=== PATIENT | male | born 1950 | race African-American/Black ===

== ENCOUNTER 2019-03-03 01:11 | Inpatient (IN) | payer MEDICARE, OTHER ==
[~2019-03-03] VITALS: Ht 180.3 cm; Wt 50.0 kg
[2019-03-03] VITALS (7 sets, daily range): BP systolic 91–126; BP diastolic 56–66
[2019-03-03] MEDS ORDERED: HYDROmorphone HCL 2 MG/ML VL IV ONE ×2 (03:30→08:15)
[2019-03-03 07:00] LABS: Basophils # (auto) 0 uL; Eosinophils # (auto) 0 uL; Hemoglobin 13.9 g/dL (13.5-17.5); Monocytes # (auto) 0.6 uL; Nucleated Red Blood Cells % 0.1 %
[2019-03-03 07:02] LABS: Basophils % (auto) 0.3 % (0.0-2.0); Hematocrit 39.2 % (41.0-53.0); Lymphocytes # (auto) 0.8 uL; Lymphocytes % (auto) 10.3 % (10.0-50.0); Mean Corpuscular Hemoglobin 37.4 pg (28.0-32.0); Mean Corpuscular Hgb Conc. 35.5 g/dL (32.0-36.0); Mean Corpuscular Volume 105.2 fL (80.0-100.0); Monocytes % (auto) 7.3 % (0.0-12.0); Neutrophils # (auto) 6.6 uL; Neutrophils % (auto) 82.1 % (37.0-80.0); Platelet Count (auto) 168 10^3/uL (140-450); Red Blood Cells 3.72 10^6/uL (4.5-5.90); Red Cell Distribution Width 13.8 % (11.8-14.3); White Blood Cell 8.1 10^3/uL (4.4-10.8)
[2019-03-03 07:14] LABS: Albumin 3.5 g/dL (3.4-5.0); Calcium 10.1 mg/dL (8.5-10.1); Potassium 4.2 mmol/L (3.5-5.1)
[2019-03-03 07:23] LABS: Bilirubin, Total 1.5 mg/dL (0.2-1.0); Total Protein 7.2 g/dL (6.4-8.2)
[2019-03-03 07:35] LABS: INR 0.95 (0.9-1.15)
[2019-03-03] MEDS ORDERED: PROMETHAZINE HCL 25 MG/ML 1ML IV ONE (08:15)
[2019-03-03] MEDS ORDERED: ONDANSETRON HCL 4 MG/2 ML VIAL IV PRN (08:30)
[2019-03-03] MEDS ORDERED: ACETAMINOPHEN 500 MG TAB PO PRN (08:30)
[2019-03-03] MEDS ORDERED: DOCUSATE SOD 100 MG CAP PO PRN (08:30)
--- NOTE | 2019-03-03 10:10 | NUR ---
Telemetry admit from [facility] admitted to Telemetry unit after SBAR received. Patient oriented to Miriam Alan, primary RN, unit, room, bed, and unit policies regarding patient care and visiting hours. Patient now on continuous telemetry monitoring, tele box # 23 and telemetry reading on arrival to unit is sinus rhythm at 91bpm. Patient placed on bedside oxygen, weighed by bedscale and encouraged to call if they need something. All questions and concerns addressed, patient verbalized understanding. Note: pt is awake and alert, no signs of distress or complaints of pain at this time, will continue to monitor.
[2019-03-03] MEDS ORDERED: CHOL20007 OR (11:29)
[2019-03-03] MEDS ORDERED: ALBU108A5 IN (11:29)
[2019-03-03] MEDS ORDERED: TERA2CAP45 PO (11:29)
[2019-03-03] MEDS ORDERED: LISI-646 PO (11:29)
[2019-03-03] MEDS ORDERED: BUPR75TA9 PO (11:29)
[2019-03-03] MEDS: IPRATROPIUM BROM 0.5 MG/2.5ML INH SOL NEB SCH ×2 (11:40→19:11)
[2019-03-03] MEDS: ALBUTEROL SULF 2.5 MG/0.5ML(0.5%) NEB SOLN NEB SCH ×2 (11:41→19:11)
--- NOTE | 2019-03-03 13:50 | NUR ---
Dr. Duke at bedside. MD spoke with the patient and daughter.
--- NOTE | 2019-03-03 13:50 | NUR ---
Dr. Duke ordered Cuellar catheter insertion.
[2019-03-03] MEDS: MORPHINE SULF INJ 2 MG/ML SYRINGE 1ML IV PRN ×2 (13:56→17:48)
--- NOTE | 2019-03-03 13:56 | NUR ---
Patient pointed on his left lower side of the body, stated the pain level at 9/10 at thia time. Morphine Sulf Inj given for severe pain as ordered.
--- NOTE | 2019-03-03 15:00 | NUR ---
optifoam applied to sacral area as preventive measure.
--- NOTE | 2019-03-03 15:20 | NUR ---
Wong catheter insertion Dr. Duke ordered to insert wong catheter. Patient educated on catheter and reason for insertion. All questions answered. Wong catheter guage Romansh inserted with clean sterile technique. Patient tolerated well.
--- NOTE | 2019-03-03 15:30 | NUR ---
urine sample sent to lab for urinalysis
[2019-03-03 15:52] LABS: Urine Bacteria NONE SEEN /hpf (None Seen); Urine Blood Negative /uL (Negative); Urine Hyaline Cast FEW /lpf (0 - 2); Urine Specific Gravity 1.024 (1.001-1.035); Urine WBC 10 /hpf (0 - 3)
[2019-03-03] MEDS: SODIUM CHLORIDE 0.9% 1,000 ML IV SCH (15:53)
--- NOTE | 2019-03-03 15:56 | NUR ---
called echocardiogram tech, no answer, left a message pt has order for echocardiogram for pre-op.
[2019-03-03 16:08] LABS: Alcohol, Urine < 3.0 mg/dL (0-5); Amphetamine Screen, Urine NEGATIVE (NEGATIVE); Barbiturate Scree,Urine NEGATIVE (NEGATIVE); Benzodiazephine Screen, Urine NEGATIVE (NEGATIVE); Cannabinoid Screen, Urine NEGATIVE (NEGATIVE); Cocaine Screen, Urine NEGATIVE (NEGATIVE); Opiate Scree,Urine POSITIVE (NEGATIVE); Phencyclidine Screen, Urine NEGATIVE (NEGATIVE)
--- NOTE | 2019-03-03 18:35 | NUR ---
seen by Dr. Ugarte Pt and family made aware of the plan for surgery on Monday.
[2019-03-03] MEDS: buPROPion HCL 75 MG TAB PO SCH (18:46)
--- NOTE | 2019-03-03 19:28 | NUR ---
mrsa swab sent to lab
--- NOTE | 2019-03-03 23:53 | NUR ---
LOVE AND IV RESTARTED FOUND PATIENT REMOVING IV AND PULLING AT LOVE. TELE BOX HAD ALSO BEEN REMOVED. WHEN ASKED, PATIENT STATED THAT HE HAD HAD A "BAD DREAM". PATIENT WAS QUICKLY REORIENTED. A 20 GAUGE IV WAS RESTARTED IN RIGHT HAND. LOVE WAS TAKEN OUT AND A NEW ONE STARTED. LOVE IS DRAINING WITH DARK MINDY AND BLOOD TINGED URINE. PATIENT EDUCATED ON NECESSITY OF EQUIPMENT AND PATIENT VERBALIZED UNDERSTANDING. WILL CONTINUE TO MONITOR.
[2019-03-04] MEDS: IPRATROPIUM BROM 0.5 MG/2.5ML INH SOL NEB SCH ×4 (00:08→18:17)
[2019-03-04] MEDS: ALBUTEROL SULF 2.5 MG/0.5ML(0.5%) NEB SOLN NEB SCH ×4 (00:08→18:16)
[2019-03-04] MEDS: SODIUM CHLORIDE 0.9% 1,000 ML IV SCH ×2 (03:50→17:15)
--- NOTE | 2019-03-04 04:38 | NUR ---
PATIENT STATING PAIN FROM LOVE LOVE INSPECTED AND STILL DRAINING PROPERLY. EDUCATED PATIENT ON NECESSITY OF LOVE AND NOT TO PULL AT IT. PATIENT STATED UNDERSTANDING. WILL CONTINUE TO MONITOR.
[2019-03-04 05:41] VITALS: BP 104/57
[2019-03-04 06:48] LABS: Basophils # (auto) 0 uL; Eosinophils # (auto) 0 uL; Lymphocytes # (auto) 0.6 uL; Mean Corpuscular Hgb Conc. 34.4 g/dL (32.0-36.0); Monocytes # (auto) 0.6 uL; Neutrophils # (auto) 7.9 uL; Red Cell Distribution Width 13.8 % (11.8-14.3)
[2019-03-04] MEDS: buPROPion HCL 75 MG TAB PO SCH ×2 (06:49→18:48)
[2019-03-04 06:52] LABS: Basophils % (auto) 0.3 % (0.0-2.0); Hematocrit 36.9 % (41.0-53.0); Hemoglobin 12.7 g/dL (13.5-17.5); Lymphocytes % (auto) 6.9 % (10.0-50.0); Mean Corpuscular Hemoglobin 36.3 pg (28.0-32.0); Mean Corpuscular Volume 105.7 fL (80.0-100.0); Monocytes % (auto) 6.6 % (0.0-12.0); Neutrophils % (auto) 86.2 % (37.0-80.0); Platelet Count (auto) 135 10^3/uL (140-450); Red Blood Cells 3.49 10^6/uL (4.5-5.90); White Blood Cell 9.1 10^3/uL (4.4-10.8)
[2019-03-04 07:05] LABS: BUN/Creatinine Ratio 21.3; Calcium 9.5 mg/dL (8.5-10.1); Potassium 4.4 mmol/L (3.5-5.1)
[2019-03-04 08:44] VITALS: BP 100/58
[2019-03-04] MEDS: CHOLECALCIFEROL (VITD3) 1,000 UNIT TAB PO SCH (09:17)
[2019-03-04] MEDS ORDERED: cefTRIAXone 1GM/50ML D5W 50 ML IV ONE (09:45)
--- NOTE | 2019-03-04 10:30 | NUR ---
EKG done and result seen by Dr. Glass for pre-op clearance
--- NOTE | 2019-03-04 12:15 | NUR ---
Pt seen by Dr. Duke Orders received, readback and verified.
[2019-03-04] MEDS: Ensure Enlive Strawberry 8oz Bottle PO SCH ×2 (12:45→18:48)
[2019-03-04 13:32] VITALS: BP 125/65
[2019-03-04] MEDS: MORPHINE SULF INJ 2 MG/ML SYRINGE 1ML IV PRN (15:18)
[2019-03-04 17:23] VITALS: BP 117/63
--- NOTE | 2019-03-04 19:30 | NUR ---
Opening Shift Note Assumed care of patient, awake and alert. No S/S of distress/SOB or pain. Instructed on POC and to call for assist PRN, will continue to monitor for changes Q1hr and PRN. Bed in low position. HOB up in semi-Petit's. Call light secured to HOB rail to pt's right and placed as he desired by his arm.
[2019-03-04 22:00] VITALS: BP 108/55
[2019-03-04] MEDS: HYDROcodone-ACET 5/325MG TAB PO PRN (22:14)
[2019-03-04] MEDS: MIRTAZAPINE 30 MG TAB PO SCH (22:17)
[2019-03-05] VITALS (15 sets, daily range): BP systolic 95–150; BP diastolic 50–94
[2019-03-05] MEDS: ALBUTEROL SULF 2.5 MG/0.5ML(0.5%) NEB SOLN NEB SCH ×4 (00:24→18:37)
[2019-03-05] MEDS: IPRATROPIUM BROM 0.5 MG/2.5ML INH SOL NEB SCH ×4 (00:25→18:37)
[2019-03-05] MEDS: TEMAZEPAM 15 MG CAP PO PRN (01:07)
--- NOTE | 2019-03-05 01:13 | NUR ---
Pt restless and awake. This RN offered pt. sleep med again. Pt accepted. Restoril 15mg i po given as ordered. Pt expressed that he wants to speak with the surgeon again before signing the surgery consent.
--- NOTE | 2019-03-05 03:04 | NUR ---
0240 [employer] MIXING MACHINE OPERATOR reported to RN that pt's resps wet sounding and she had raised the head of the bed. RN entered pt's room finding pt in high Petit's position without N/C on and RR at 36. This RN attempted to rouse pt to replace n/c in nares. Pt sleeping soundly, moves arms/hands as if dreaming. Nasal cannula placed in pt's open mouth at 3lpm. RR immediately slowing; slowed to 28 and O2 sat at 97. RN paged RT who returned call within 5 minutes. Two RT responded to room asking about pt's diet/drinking as this RN stated pt coughing hard when water given with Restoril. RTs also assessed pt; O2 sat 96. Pt's resps still rapid but dryer sounding after one spontaneous cough. RTs both state pt "is okay."
[2019-03-05] MEDS: SODIUM CHLORIDE 0.9% 1,000 ML IV SCH ×2 (04:59→16:58)
[2019-03-05] MEDS: buPROPion HCL 75 MG TAB PO SCH ×2 (06:05→18:33)
--- NOTE | 2019-03-05 06:06 | NUR ---
CHG bath given. Pt drowsy and mumbling. Tolerated activity well.
[2019-03-05] MEDS: Ensure Enlive Strawberry 8oz Bottle PO SCH ×3 (08:00→19:17)
[2019-03-05] MEDS: cefTRIAXone 1GM/50ML D5W 50 ML IV SCH (08:12)
[2019-03-05] MEDS ORDERED: MORPHINE SULF(PF) 0.5MG/ML 10ML VIAL ONE (08:22)
[2019-03-05] MEDS ORDERED: SODIUM CHLORIDE LOCK 20 ML ONE (08:23)
[2019-03-05] MEDS ORDERED: PROPOFOL 10 MG/ML 20 ML IV ONE (08:23)
[2019-03-05] MEDS ORDERED: ONDANSETRON HCL 4 MG/2 ML VIAL ONE (08:23)
[2019-03-05] MEDS ORDERED: MIDAZOLAM HCL 1MG/1ML-2 ML VIAL ONE (08:23)
[2019-03-05] MEDS ORDERED: fentaNYL CITRATE 100 MCG/2 ML VL ONE (08:23)
--- NOTE | 2019-03-05 08:25 | NUR ---
pt transported to pre-op via bed for hip surgery, pre-op checklist completed, consents signed, iv on right hand patent and flushing, no signs of distress at this time.
[2019-03-05] MEDS ORDERED: EPINEPHrine HCL 1 MG/1 ML AMP ONE (08:26)
[2019-03-05] MEDS ORDERED: TETRACAINE 1% INJ 2 ML VIAL IJ ONE (08:35)
[2019-03-05] MEDS ORDERED: ceFAZolin 1GM/50ML 50 ML IV ONE (09:01)
[2019-03-05] MEDS: CHOLECALCIFEROL (VITD3) 1,000 UNIT TAB PO SCH (10:00)
[2019-03-05] MEDS ORDERED: METOCLOPRAMIDE HCL 5MG/ml INJ 2ml VIAL IV PRN (10:45)
[2019-03-05] MEDS ORDERED: diphenhdrAMINE HCL 50 MG/1 ML VL IV PRN (10:45)
[2019-03-05] MEDS ORDERED: NALOXONE HCL 0.4 MG/ML VIAL IV PRN (10:45)
[2019-03-05] MEDS ORDERED: HYDROmorphone HCL 2 MG/ML VL IV PRN (10:45)
[2019-03-05] MEDS ORDERED: ACCU-CHEK COMFORT CURVE STRIP VI ONE (10:45)
--- NOTE | 2019-03-05 11:15 | NUR ---
Respiratory note: UNABLE TO ADMINISTER MED NEB TX, PT AT PROCEDURE. BEDSIDE POX SET UP AT BEDSIDE. RN SIVA INFORMED OF SET UP AND NON ADMINISTER.
[2019-03-05] MEDS ORDERED: ROPIVACAINE 0.5% (5MG/ML) 20ML AMPULE IJ ONE (11:41)
[2019-03-05] MEDS ORDERED: LIDOCAINE W/ EPINEPHRINE 2% INJ 20ML VIAL ONE (11:41)
--- NOTE | 2019-03-05 12:10 | NUR ---
received report from QASIM Lindsay in PACU, pt for monitoring for duramorph.
--- NOTE | 2019-03-05 12:25 | NUR ---
RECEIVED PT FROM PACU VIA BED, STILL DROWSY, WITH POST OP WOUND DRESSING CLEAN DRY AND INTACT, BP 110/59, HR 102, RR 24 O2 SAT 94%.
[2019-03-05] MEDS: ceFAZolin 1GM/50ML 50 ML IV SCH ×2 (16:58→22:23)
--- NOTE | 2019-03-05 18:30 | NUR ---
vital signs monitored every hour, vital signs stable.
--- NOTE | 2019-03-05 19:25 | NUR ---
OPENING NOTES RECEIVED REPORT FROM DAY SHIFT NURSE, SIVA. PT IS ALERT AND ORIENTATED X 4 WITH NO S/S OF DISTRESS NOR PAIN. NO S/S OF SOB NOTED. FAMILY IS AT BEDSIDE. LEFT HIP INCISION IS CLEAN, DRY AND INTACT. WILL MONITOR VITAL SIGNS Q 1 HR. LOVE CATHETER IS IN PLACE, SECURED, PATENT, DRAINING AND BELOW BLADDER. BED IS IN LOWEST POSITION AND CALL LIGHT IS WITH IN REACH. BED BRAKES ARE LOCKED AND SIDE RAILS UP X 2. HOB IS 30 DEGREES.
--- NOTE | 2019-03-05 21:05 | NUR ---
SUCTION PT EXHIBITS COARSE LUNG SOUNDS, COUGH WITH SPUTUM. ASSISTED WITH SUCTION.
[2019-03-05] MEDS: MIRTAZAPINE 30 MG TAB PO SCH (22:23)
[2019-03-05] MEDS: DOCUSATE SOD 100 MG CAP PO SCH (22:23)
--- NOTE | 2019-03-05 23:02 | NUR ---
suction pt cough and producing sputum, helped patient expel sputum with suction.
[2019-03-06] VITALS (19 sets, daily range): BP systolic 99–154; BP diastolic 58–93
[2019-03-06] MEDS: IPRATROPIUM BROM 0.5 MG/2.5ML INH SOL NEB SCH ×4 (00:14→18:45)
[2019-03-06] MEDS: ALBUTEROL SULF 2.5 MG/0.5ML(0.5%) NEB SOLN NEB SCH ×4 (00:14→18:45)
[2019-03-06] MEDS: buPROPion HCL 75 MG TAB PO SCH ×2 (06:07→19:00)
[2019-03-06] MEDS: ceFAZolin 1GM/50ML 50 ML IV SCH ×2 (06:07→15:03)
--- NOTE | 2019-03-06 07:40 | NUR ---
Opening Shift Note Assumed care of patient, awake, alert and oriented x3. Patient believes its the year 1976. Re-oriented patient. No S/S of distress/SOB or pain. Dressing on left hip is dry and intact. Bed at lowest locked position , side rails up x2 and call light within reach. Bed alarm on .Instructed on POC and to call for assist PRN, will continue to monitor for changes Q1hr and PRN.
[2019-03-06] MEDS: Ensure Enlive Strawberry 8oz Bottle PO SCH ×3 (08:00→18:00)
[2019-03-06] MEDS: SODIUM CHLORIDE 0.9% 1,000 ML IV SCH ×2 (09:10→22:30)
[2019-03-06] MEDS: cefTRIAXone 1GM/50ML D5W 50 ML IV SCH (09:13)
[2019-03-06] MEDS: CHOLECALCIFEROL (VITD3) 1,000 UNIT TAB PO SCH (09:14)
[2019-03-06] MEDS: DOCUSATE SOD 100 MG CAP PO SCH ×2 (09:14→21:06)
[2019-03-06] MEDS: ENOXAPARIN SOD 40 MG/0.4 ML SYRINGE SC SCH (09:14)
[2019-03-06] MEDS: MORPHINE SULF INJ 2 MG/ML SYRINGE 1ML IV PRN (09:15)
--- NOTE | 2019-03-06 09:57 | NUR ---
Patient spilled water pitcher on himself. Provided a clean gown and completed a bed linen change with help of MARTI Weinstein. Patient tolerated well.
[2019-03-06] MEDS ORDERED: ENOXAPARIN SOD 40 MG/0.4 ML SYRINGE SC SCH (10:00)
--- NOTE | 2019-03-06 10:01 | NUR ---
Patient goes in and out of confusion. When asked where he is , patient states " i am in [place]". Patient is attemp[ting to pull his IV line and Cuellar catheter,placed mittens on Patient. Daughter at bedside and is concerned for patient. She states that he is mumbling too much and keeps talking in the past. Will notify MD. Will continue to monitor Q1HR and as needed.
--- NOTE | 2019-03-06 10:06 | NUR ---
Suction Patient began to cough during medication pass , producing sputum, suctioned patient to help expel sputum .Will continue to monitor.
[2019-03-06] MEDS: HYDROcodone-ACET 5/325MG TAB PO PRN ×2 (11:34→21:05)
--- NOTE | 2019-03-06 12:30 | NUR ---
Dressing change per MD orders. Patient tolerated well.
--- NOTE | 2019-03-06 12:42 | NUR ---
Respiratory note: PT FOUND WITH CONTINUOUS POX DISCONNECTED FROM THE WALL AND DISCONNECTED FROM PT'S FINGER. NEW PROBE HAS BEEN REATTACHED TO PT'S RIGHT HAND. ALARMS ARE ON AND FUNCTIONAL. MED Remote[employer] TX HAS BEEN ADMINISTERED ORDERED. POX CURRENTLY 93% ON 2L NC.
[2019-03-06] MEDS ORDERED: NICOTINE 21MG/24 HR TOPICAL PATCH TD ONE (13:30)
--- NOTE | 2019-03-06 15:13 | NUR ---
Nutrition Assessment Notes please see attached link for complete assessment Est. Needs IBW [id number] kcal (25-30 kcal/kgBW), 78-93 gms pro (1.0-1.2 gms/kgBW). Will continue to monitor pertinent labs and reassess nutrient need prn Addendum: 03/06/19 at [address] Amended: Links added.
--- NOTE | 2019-03-06 16:37 | NUR ---
assessment Patient is a 68 year old male who is confused from anesthesia. Per patients daughter Yaneli prior to admission patient lived home alone and was independent. Patient has a fww for home use. Patients PCP is at the [facility]. Patient fell at home and broke his hip. Patient will need rehab on discharge. Family is requesting [facility]. I have notified bedside RN. Addendum: 03/06/19 at 1653 by Zonia MENDEZ Amended: Links added.
--- NOTE | 2019-03-06 18:45 | NUR ---
Respiratory note: OXYGEN ASSESSMENT, PT ON 2L NC AT THIS TIME. PT CONNECTED TO BEDSIDE PULSE OX, PULSE OX PLUGGED INTO RED OUTLET, ALARMS ON AND AUDIBLE, PULSE OX PROB HAS GOOD INTEGRITY. PT SPO2 97% ON 28% FIO2. PT IN NO RESPIRATORY DISTRESS AT THIS TIME. MED NEB TX GIVEN VIA MASK, TOLERATED WELL. NO ADVERSE REACTIONS NOTED. PT REMAINS ON 2L NC, FAMILY AT BEDSIDE. WILL CONTINUE TO MONITOR.
--- NOTE | 2019-03-06 19:45 | NUR ---
Opening Shift Note Assumed care of patient, awake and alert. No S/S of distress/SOB or pain. Instructed on POC and to call for assist PRN, will continue to monitor for changes Q1hr and PRN.
[2019-03-06] MEDS: FOLIC ACID 1 MG, MULTIPLE VITAMIN 10 ML, MAGNESIUM SULF SDV 50% 8 MEQ, THIAMINE INJ 100... INJ SCH ×5 (20:27)
[2019-03-06] MEDS: MIRTAZAPINE 30 MG TAB PO SCH (21:06)
[2019-03-07] MEDS: TEMAZEPAM 15 MG CAP PO PRN (00:11)
[2019-03-07] MEDS: IPRATROPIUM BROM 0.5 MG/2.5ML INH SOL NEB SCH ×4 (00:34→19:04)
[2019-03-07] MEDS: ALBUTEROL SULF 2.5 MG/0.5ML(0.5%) NEB SOLN NEB SCH ×4 (00:34→19:04)
[2019-03-07 05:00] VITALS: BP 148/49
[2019-03-07] MEDS: HYDROcodone-ACET 5/325MG TAB PO PRN ×3 (05:12→14:46)
[2019-03-07] MEDS: buPROPion HCL 75 MG TAB PO SCH ×2 (06:37→18:41)
[2019-03-07 07:24] LABS: Hematocrit 30.2 % (41.0-53.0); Hemoglobin 10.5 g/dL (13.5-17.5)
[2019-03-07 08:00] VITALS: BP 128/84
[2019-03-07] MEDS: Ensure Enlive Strawberry 8oz Bottle PO SCH ×3 (08:00→18:00)
[2019-03-07 09:00] VITALS: BP 128/84
[2019-03-07] MEDS: cefTRIAXone 1GM/50ML D5W 50 ML IV SCH ×2 (09:12→10:44)
[2019-03-07] MEDS: FOLIC ACID 1 MG TAB PO SCH (09:12)
[2019-03-07] MEDS: DOCUSATE SOD 100 MG CAP PO SCH ×2 (09:13→22:00)
[2019-03-07] MEDS: CHOLECALCIFEROL (VITD3) 1,000 UNIT TAB PO SCH (09:13)
[2019-03-07] MEDS: THIAMINE HCL 100 MG TAB PO SCH (09:13)
[2019-03-07] MEDS: ENOXAPARIN SOD 40 MG/0.4 ML SYRINGE SC SCH (09:14)
[2019-03-07] MEDS: NICOTINE 21MG/24 HR TOPICAL PATCH TD SCH (09:14)
[2019-03-07] MEDS ORDERED: MORPHINE SULF INJ 2 MG/ML SYRINGE 1ML IV PRN (10:15)
[2019-03-07] MEDS ORDERED: LISINOPRIL 20 MG TAB PO ONE (10:15)
[2019-03-07] MEDS ORDERED: FOLIC ACID 1 MG, MULTIPLE VITAMIN 10 ML, MAGNESIUM SULF SDV 50% 8 MEQ, THIAMINE INJ 100... INJ SCH ×5 (12:00)
[2019-03-07 13:00] VITALS: BP 108/46
[2019-03-07] MEDS: FOLIC ACID 1 MG, MULTIPLE VITAMIN 10 ML, MAGNESIUM SULF SDV 50% 8 MEQ, THIAMINE INJ 100... INJ SCH ×5 (14:10)
[2019-03-07 17:27] VITALS: BP 118/68
--- NOTE | 2019-03-07 18:59 | NUR ---
CLOSING NOTE Patient is comfortably resting in bed on 2L NC, no c/o pain/sob. Bed at lowest locked position and call light within reach. Family at bedside. Family at bedside. Will endorse care to NOC RN.
--- NOTE | 2019-03-07 19:30 | NUR ---
RECEIVED PATIENT LYING IN BED, AWAKE, ALERT, ORIENTED X4. FAMILY AT BEDSIDE. NO S/S OF RESPIRATORY DISTRESS, DENIES ANY PAIN. ORIENTED ON PLAN OF CARE. BED IS LOCKED AND IN LOWEST LEVEL, SIDE RAILS UP X2, BED ALARM ON, CALL LIGHT WITHIN REACH. WILL CONTINUE TO MONITOR.
[2019-03-07] MEDS ORDERED: TERAZOSIN HCL 1 MG CAP PO SCH (22:00)
[2019-03-07] MEDS: MIRTAZAPINE 30 MG TAB PO SCH (22:00)
[2019-03-08 00:05] VITALS: BP 116/67
--- NOTE | 2019-03-08 00:16 | NUR ---
RT NOTE PT ASKED TO SKIP THIS TX. RT EXPLAINED TO THE PT THAT THE NEXT TX IS SCHEDULED FOR 0600, THE PT STATED THAT THAT WAS FINE. PT AWARE TO HAVE RT PAGED IF NEEDED BEFORE 0600. PT DENIES ANY SOB. PT SHOWING NO SIGNS OF RESP DISTRESS.
[2019-03-08 05:35] VITALS: BP 132/78
[2019-03-08] MEDS: ALBUTEROL SULF 2.5 MG/0.5ML(0.5%) NEB SOLN NEB SCH ×3 (05:56→11:46)
[2019-03-08] MEDS: IPRATROPIUM BROM 0.5 MG/2.5ML INH SOL NEB SCH ×3 (05:56→11:46)
[2019-03-08] MEDS: buPROPion HCL 75 MG TAB PO SCH (06:28)
[2019-03-08 07:20] LABS: Hematocrit 26.7 % (41.0-53.0); Hemoglobin 9.4 g/dL (13.5-17.5)
--- NOTE | 2019-03-08 07:27 | NUR ---
CARE ENDORSED TO AM SHIFT RN
--- NOTE | 2019-03-08 07:40 | NUR ---
Opening Shift Note Assumed care of patient, awake and alert X4 No S/S of distress/SOB or pain. Bed at lowest locked position, side rails up x2 and call light within reach. Instructed on POC and to call for assist PRN, will continue to monitor for changes Q1hr and PRN.
[2019-03-08 08:00] VITALS: BP_SYST 121; BP_SYST 145; BP_DIAS 65; BP_DIAS 73
[2019-03-08] MEDS: Ensure Enlive Strawberry 8oz Bottle PO SCH ×2 (08:00→12:00)
[2019-03-08 08:30] VITALS: BP 121/65
[2019-03-08] MEDS ORDERED: MAGNESIUM CITRATE SOLUTION 300 ML BTL PO ONE (08:45)
[2019-03-08] MEDS: HYDROcodone-ACET 5/325MG TAB PO PRN (09:01)
[2019-03-08] MEDS: CHOLECALCIFEROL (VITD3) 1,000 UNIT TAB PO SCH (09:01)
[2019-03-08] MEDS: FOLIC ACID 1 MG TAB PO SCH (09:01)
[2019-03-08] MEDS: THIAMINE HCL 100 MG TAB PO SCH (09:02)
[2019-03-08] MEDS: ENOXAPARIN SOD 40 MG/0.4 ML SYRINGE SC SCH ×2 (09:02→10:00)
[2019-03-08] MEDS: DOCUSATE SOD 100 MG CAP PO SCH (09:02)
[2019-03-08] MEDS: NICOTINE 21MG/24 HR TOPICAL PATCH TD SCH (09:03)
--- NOTE | 2019-03-08 09:05 | NUR ---
Cuellar catheter Order to discontinue Cuellar catheter. Cuellar discontinued with clean technique following deflation of balloon. Patient tolerated well with no complaints of pain. Continue care. Provided Urinal at bedside.
[2019-03-08] MEDS ORDERED: LISINOPRIL 20 MG TAB PO SCH (10:00)
[2019-03-08 12:30] VITALS: BP 114/79
[2019-03-08] MEDS: FOLIC ACID 1 MG, MULTIPLE VITAMIN 10 ML, MAGNESIUM SULF SDV 50% 8 MEQ, THIAMINE INJ 100... INJ SCH ×5 (12:56)
--- NOTE | 2019-03-08 13:30 | NUR ---
PATIENT HAS VOIDED LIGHT MINDY URINE WITHOUT DIFFICULTY .
--- NOTE | 2019-03-08 15:40 | NUR ---
SPOKE TO BRIAN , NEUROLOGY HOSPITALIST, PATIENT HAS BEEN ACCEPTED TO [facility], ROOM 99, ACCEPTING MD IS MIN. PATIENT AND FAMILY AWARE.
--- NOTE | 2019-03-08 15:55 | NUR ---
CALLED [facility] AND GAVE REPORT TO ROJAS AT [phone].
[2019-03-08 16:04] VITALS: BP 114/79
--- NOTE | 2019-03-08 16:56 | NUR ---
Discharge instructions given as ordered. All questions and concerns addressed. Patient verbalized understanding. IV removed with catheter intact, pressure dressing applied, wong catheter removed. Medication reconciliation form completed and copy given to patient. Home medications held in Pharmacy returned to patient, and needed vaccines given. Telemetry unit returned to ICU. Report given to ROJAS at [facility] facility. Patient transported by [facility] with all personal belongings. No distress noted at time of departure.
--- NOTE | 2019-03-08 17:00 | NUR ---
Discharge planning per consult, patient received orders for SNF. Referral faxed, [facility] accepted the patient under Dr. Aden. Patient will go to room 99 per Erika (Stephanie), and she advised he will be enrolled in the COPD program. Patient was scheduled for a 5pm pickup for transportation with [facility] via gurney transport on 2LPM of oxygen;patient at the time of this note, had left the facility in route to [place]. Nurse Benita notified of Stephanie information to give report. Addendum: 03/08/19 at 1704 by BRIAN BO Amended: Links added.
== END 2019-03-08 16:50 | DRG 480 ==
LOC: ER 01:11 → EDBD 01:11 → TELE 01:12 → TELE-WESTW 10:09
PROVIDERS: ADMIT Nurse Practitioner Family; ATTEND Internal Medicine
PROC: 0SU Lower Joints, Supplement (ICD-10-PCS; 2019-03-05)
PROC: 0QS736Z Reposition Left Upper Femur with Intramedullary Internal Fixation Device, Percutaneous Approach (ICD-10-PCS; principal; 2019-03-05 09:22)
DX: M84.452A Pathological fracture, left femur, initial encounter for fracture (principal); N17.0 Acute kidney failure with tubular necrosis; M25.052 Hemarthrosis, left hip; Z68.1 Body mass index [BMI] 19.9 or less, adult; R62.7 Adult failure to thrive; J44.9 Chronic obstructive pulmonary disease, unspecified; M85.862 Other specified disorders of bone density and structure, left lower leg; F32.9 Major depressive disorder, single episode, unspecified; R63.4 Abnormal weight loss; N40.0 Benign prostatic hyperplasia without lower urinary tract symptoms; W01.0XXA Fall on same level from slipping, tripping and stumbling without subsequent striking against object, initial encounter; N18.9 Chronic kidney disease, unspecified; I12.9 Hypertensive chronic kidney disease with stage 1 through stage 4 chronic kidney disease, or unspecified chronic kidney disease; Z72.0 Tobacco use; Z82.3 Family history of stroke; Z82.49 Family history of ischemic heart disease and other diseases of the circulatory system; Z83.3 Family history of diabetes mellitus; Y93.89 Activity, other specified; Y92.098 Other place in other non-institutional residence as the place of occurrence of the external cause; Y99.8 Other external cause status
CPT/HCPCS: 36415; 70450; 71045; 73501; 73700; 76000; 80048; 80053; 80307; 81001; 82962; 84154; 85014; 85018; 85025; 85610; 86850; 86900; 86901; 87081; 87086; 93005; 93306; 94640; 94762; 96374; 96375; 97110; 97116; 97163; 97530; A4565; C1713; G0378; J0171; J0690; J0696; J2250; J2405; J2704

== ENCOUNTER 2024-05-07 15:55 | Inpatient (IN) | payer OTHER ==
[~2024-05-07] VITALS: Ht 172.7 cm; Wt 48.6 kg
[~2024-05-07 15:55] MED LIST: ALBU108A5 IN; BUPR75TA96 PO; CHOL20007 OR; LISI20TA56 PO; TERA2CAP79 PO
[2024-05-07 16:40] VITALS: PULSE 109; RESP 23; O2SAT 96
[2024-05-07] MEDS: methylPREDNISolone SOD SUCC 125 MG/2 ML VL IV ONE (16:49)
[2024-05-07 17:41] LABS: Basophils # (auto) 0 10 ^3/uL (0-0.2); Eosinophils # (auto) 0 10 ^3/uL (0-0.8); Neutrophils % (auto) 79.3 % (37.0-80.0); Nucleated Red Blood Cells % 0.1 %
[2024-05-07 17:45] LABS: Basophils % (auto) 0.4 % (0.0-2.0); Hematocrit 43.2 % (41.0-53.0); Hemoglobin 14.9 g/dL (13.5-17.5); Lymphocytes # (auto) 0.8 10 ^3/uL (0.4-5.4); Lymphocytes % (auto) 10.4 % (10.0-50.0); Mean Corpuscular Hemoglobin 36.2 pg (28.0-32.0); Mean Corpuscular Hgb Conc. 34.6 g/dL (32.0-36.0); Mean Corpuscular Volume 104.7 fL (80.0-100.0); Monocytes # (auto) 0.7 10 ^3/uL (0-1.3); Monocytes % (auto) 9.9 % (0.0-12.0); Platelet Count (auto) 215 10^3/uL (140-450); Red Blood Cells 4.12 10^6/uL (4.5-5.90); Red Cell Distribution Width 15.9 % (11.8-14.3); White Blood Cell 7.5 10^3/uL (4.4-10.8)
[2024-05-07 17:49] LABS: Chloride 101 mmol/L (98-107); Potassium 4.3 mmol/L (3.5-5.1); Sodium 135 mmol/L (136-145)
[2024-05-07 17:50] LABS: Anion Gap 8 (5-15); Carbon Dioxide 26 mmol/L (20-31)
[2024-05-07 17:51] LABS: Calcium 10.9 mg/dL (8.7-10.4)
[2024-05-07 17:55] LABS: BUN/Creatinine Ratio 18.1 (10.0-20.0); Blood Urea Nitrogen 25 mg/dL (9-23); Glucose 135 mg/dL (74-106)
[2024-05-07 19:30] VITALS: PULSE 96; RESP 26; O2SAT 98
[2024-05-07] MEDS: ALBUTEROL SULF 2.5 MG/0.5ML(0.5%) NEB SOLN NEB ONE (19:36)
[2024-05-07] MEDS: IPRATROPIUM BROM 0.5 MG/2.5ML INH SOL NEB ONE (19:36)
[2024-05-07] MEDS: MAGNESIUM SULFATE 1GM/100ML 100 ML IV ONE (19:48)
[2024-05-07 20:09] LABS: Basophils # (auto) 0 10 ^3/uL (0-0.2); Basophils % (auto) 0.3 % (0.0-2.0); Eosinophils # (auto) 0 10 ^3/uL (0-0.8); Hematocrit 44.3 % (41.0-53.0); Hemoglobin 15.1 g/dL (13.5-17.5); Lymphocytes # (auto) 0.1 10 ^3/uL (0.4-5.4); Lymphocytes % (auto) 1.9 % (10.0-50.0); Mean Corpuscular Hemoglobin 35.7 pg (28.0-32.0); Mean Corpuscular Volume 104.8 fL (80.0-100.0); Monocytes # (auto) 0.1 10 ^3/uL (0-1.3); Monocytes % (auto) 0.9 % (0.0-12.0); Neutrophils # (auto) 6.5 10 ^3/uL (1.6-8.6); Neutrophils % (auto) 96.9 % (37.0-80.0); Nucleated Red Blood Cells % 0.1 %; Platelet Count (auto) 216 10^3/uL (140-450); Red Blood Cells 4.22 10^6/uL (4.5-5.90); White Blood Cell 6.7 10^3/uL (4.4-10.8)
[2024-05-07] MEDS ORDERED: TEMAZEPAM 15 MG CAP PO PRN (21:30)
[2024-05-07] MEDS ORDERED: MORPHINE SULFATE INJ 2 MG/ml SYRG IV PRN (21:30)
[2024-05-07] MEDS ORDERED: NITROGLYCERIN 0.4 MG SL TAB SL PRN (21:30)
[2024-05-07] MEDS ORDERED: ALBUTEROL SULF 2.5 MG/0.5ML(0.5%) NEB SOLN NEB PRN (21:30)
[2024-05-07] MEDS ORDERED: ONDANSETRON HCL 4 MG/2 ML VIAL IV PRN (21:30)
[2024-05-07] MEDS ORDERED: IPRATROPIUM BROM 0.5 MG/2.5ML INH SOL NEB PRN (21:30)
[2024-05-07] MEDS ORDERED: ACETAMINOPHEN 325 MG TAB PO PRN (21:30)
[2024-05-07 21:45] VITALS: BP 109/60; PULSE 99; RESP 18; TEMP 97.9; O2SAT 94
[2024-05-07 21:48] LABS: Chloride 102 mmol/L (98-107); Potassium 4.9 mmol/L (3.5-5.1); Sodium 136 mmol/L (136-145)
[2024-05-07 21:49] LABS: Anion Gap 10 (5-15); Carbon Dioxide 24 mmol/L (20-31)
[2024-05-07 21:50] LABS: Calcium 11.1 mg/dL (8.7-10.4)
[2024-05-07 21:54] LABS: Glucose 136 mg/dL (74-106)
[2024-05-07 21:55] LABS: BUN/Creatinine Ratio 14.3 (10.0-20.0); Blood Urea Nitrogen 20 mg/dL (9-23)
[2024-05-07 22:20] VITALS: O2SAT 94
[2024-05-07 23:10] VITALS: BP 105/56; PULSE 103; RESP 20; TEMP 97.7; O2SAT 100
[2024-05-08] VITALS (17 sets, daily range): BP systolic 89–105; BP diastolic 50–61; PULSE 50–112; RESP 14–20; TEMP 97.6–98.4; O2SAT 92–100
[2024-05-08 06:08] LABS: Chloride 100 mmol/L (98-107); Potassium 4.7 mmol/L (3.5-5.1); Sodium 134 mmol/L (136-145)
[2024-05-08 06:09] LABS: Anion Gap 9 (5-15); Calcium 11.2 mg/dL (8.7-10.4); Carbon Dioxide 25 mmol/L (20-31)
[2024-05-08 06:14] LABS: BUN/Creatinine Ratio 14.5 (10.0-20.0); Blood Urea Nitrogen 25 mg/dL (9-23)
[2024-05-08 06:30] LABS: Glucose 247 mg/dL (74-106)
[2024-05-08] MEDS: buPROPion HCL 75 MG TAB PO SCH (06:54)
[2024-05-08] MEDS: IPRATROPIUM BROM 0.5 MG/2.5ML INH SOL NEB SCH (09:39)
[2024-05-08] MEDS: ALBUTEROL SULF 2.5 MG/0.5ML(0.5%) NEB SOLN NEB SCH (09:39)
[2024-05-08] MEDS: LISINOPRIL 20 MG TAB PO SCH (10:00)
[2024-05-08] MEDS ORDERED: methylPREDNISolone SOD SUCC 40 MG/ML VL IV SCH (10:00)
[2024-05-08] MEDS: ENOXAPARIN SOD 40 MG/0.4 ML SYRINGE SC SCH (10:11)
[2024-05-08] MEDS: AZITHROMYCIN 250 MG TAB PO SCH (10:11)
[2024-05-08] MEDS: predniSONE 20 MG TAB PO SCH (10:11)
[2024-05-08] MEDS: SODIUM CHLORIDE 0.9% 500 ML IV ONE (10:27)
[2024-05-08 11:46] LABS: Base Excess -3.2 mmol/L (-2.0-3.0)
[2024-05-08 12:51] LABS: Lactic Acid w/Reflex 3.1 mmol/L (0.4-2.0)
[2024-05-08] MEDS: cefTRIAXone 2GM/50ML D5W 50 ML IV SCH (13:22)
[2024-05-08 15:07] LABS: Alkaline Phosphatase 114 U/L (46-116); Anion Gap 6 (5-15); Aspartate Aminotransferase 10 U/L (13-40); BUN/Creatinine Ratio 17.9 (10.0-20.0); Blood Urea Nitrogen 29 mg/dL (9-23); Calcium 10.6 mg/dL (8.7-10.4); Carbon Dioxide 25 mmol/L (20-31); Chloride 103 mmol/L (98-107); Glucose 177 mg/dL (74-106); Potassium 5.2 mmol/L (3.5-5.1); Sodium 134 mmol/L (136-145)
[2024-05-08 15:08] LABS: Alanine Aminotransferase < 9 U/L (7-40); Bilirubin, Total 0.7 mg/dL (0.2-1.0); Total Protein 6.9 g/dL (5.7-8.2)
[2024-05-08] MEDS ORDERED: DEXTROSE (50%) 50ML SYRG IV PRN (16:15)
[2024-05-08] MEDS ORDERED: ALBUTEROL SULF 2.5 MG/0.5ML(0.5%) NEB SOLN NEB ONE (16:30)
[2024-05-08] MEDS: ACCU-CHEK COMFORT CURVE STRIP VI SCH (20:12)
[2024-05-08] MEDS: InsuLIN REG 1unit/0.01ml Soln (100units/ml) SC SCH (20:18)
[2024-05-09] VITALS (18 sets, daily range): BP systolic 87–112; BP diastolic 49–64; PULSE 57–98; RESP 16–18; TEMP 97.7–98.2; O2SAT 91–100
[2024-05-09 02:59] LABS: Urine Bacteria None Seen /hpf (None Seen)
[2024-05-09 03:06] LABS: Urine Blood Negative /uL (Negative); Urine Clarity Clear (Clear); Urine Color Yellow (Yellow); Urine Protein, UAD TRACE (Negative); Urine Specific Gravity 1.027 (1.001-1.035); Urine Urobilinogen Normal (Negative); Urine WBC 1 /hpf (0 - 3)
[2024-05-09 08:35] LABS: Basophils # (auto) 0 10 ^3/uL (0-0.2); Basophils % (auto) 0.2 % (0.0-2.0); Eosinophils # (auto) 0 10 ^3/uL (0-0.8); Hemoglobin 13.8 g/dL (13.5-17.5); Mean Corpuscular Hemoglobin 35.4 pg (28.0-32.0); Nucleated Red Blood Cells % 0.1 %
[2024-05-09 08:37] LABS: Hematocrit 40.9 % (41.0-53.0); Lymphocytes # (auto) 0.8 10 ^3/uL (0.4-5.4); Lymphocytes % (auto) 5.9 % (10.0-50.0); Mean Corpuscular Hgb Conc. 33.6 g/dL (32.0-36.0); Mean Corpuscular Volume 105.3 fL (80.0-100.0); Monocytes # (auto) 0.7 10 ^3/uL (0-1.3); Monocytes % (auto) 4.6 % (0.0-12.0); Neutrophils # (auto) 12.8 10 ^3/uL (1.6-8.6); Neutrophils % (auto) 89.3 % (37.0-80.0); Platelet Count (auto) 215 10^3/uL (140-450); Red Blood Cells 3.89 10^6/uL (4.5-5.90); Red Cell Distribution Width 15.8 % (11.8-14.3); White Blood Cell 14.3 10^3/uL (4.4-10.8)
[2024-05-09 08:44] LABS: Alkaline Phosphatase 110 U/L (46-116); Anion Gap 5 (5-15); Aspartate Aminotransferase 10 U/L (13-40); BUN/Creatinine Ratio 24.3 (10.0-20.0); Bilirubin, Total 0.8 mg/dL (0.2-1.0); Blood Urea Nitrogen 34 mg/dL (9-23); Calcium 11.4 mg/dL (8.7-10.4); Carbon Dioxide 25 mmol/L (20-31); Chloride 105 mmol/L (98-107); Glucose 118 mg/dL (74-106); Potassium 4.7 mmol/L (3.5-5.1); Sodium 135 mmol/L (136-145)
[2024-05-09 08:45] LABS: Total Protein 7.1 g/dL (5.7-8.2)
[2024-05-09 08:57] LABS: Alanine Aminotransferase < 9 U/L (7-40)
[2024-05-09] MEDS: ENOXAPARIN SOD 30 MG/0.3 ML SYRINGE SC SCH (09:30)
[2024-05-09 10:32] LABS: Folate (Folic Acid) 9.54 ng/mL (>5.38)
[2024-05-09] MEDS ORDERED: SODIUM PHOSPHATES 20 MEQ in SODIUM CHL 0.9% 100 ML IV ONE (17:45)
[2024-05-09 20:12] LABS: Albumin 4.2 g/dL (3.2-4.8); Alkaline Phosphatase 110 U/L (46-116); Anion Gap 6 (5-15); Aspartate Aminotransferase 17 U/L (13-40); BUN/Creatinine Ratio 23.2 (10.0-20.0); Bilirubin, Total 0.6 mg/dL (0.2-1.0); Blood Urea Nitrogen 35 mg/dL (9-23); Carbon Dioxide 26 mmol/L (20-31); Chloride 102 mmol/L (98-107); Glucose 141 mg/dL (74-106); Potassium 5.4 mmol/L (3.5-5.1); Sodium 134 mmol/L (136-145); Total Protein 7.5 g/dL (5.7-8.2)
[2024-05-09 20:29] LABS: Alanine Aminotransferase < 9 U/L (7-40)
[2024-05-10] VITALS (16 sets, daily range): BP systolic 112–155; BP diastolic 68–99; PULSE 54–103; RESP 16–22; TEMP 97.3–98.2; O2SAT 91–100
[2024-05-10 07:01] LABS: Basophils # (auto) 0 10 ^3/uL (0-0.2); Eosinophils # (auto) 0 10 ^3/uL (0-0.8); Monocytes # (auto) 0.7 10 ^3/uL (0-1.3); Neutrophils # (auto) 9.6 10 ^3/uL (1.6-8.6); Nucleated Red Blood Cells % 0.1 %; Red Blood Cells 3.92 10^6/uL (4.5-5.90)
[2024-05-10 07:03] LABS: Basophils % (auto) 0.3 % (0.0-2.0); Hematocrit 41.5 % (41.0-53.0); Hemoglobin 14.3 g/dL (13.5-17.5); Lymphocytes # (auto) 1.2 10 ^3/uL (0.4-5.4); Lymphocytes % (auto) 10.1 % (10.0-50.0); Mean Corpuscular Hemoglobin 36.4 pg (28.0-32.0); Mean Corpuscular Hgb Conc. 34.4 g/dL (32.0-36.0); Mean Corpuscular Volume 105.8 fL (80.0-100.0); Monocytes % (auto) 6.1 % (0.0-12.0); Neutrophils % (auto) 83.5 % (37.0-80.0); Platelet Count (auto) 197 10^3/uL (140-450); Red Cell Distribution Width 16.5 % (11.8-14.3); White Blood Cell 11.5 10^3/uL (4.4-10.8)
[2024-05-10 08:06] LABS: PSA Free 0.27 ng/mL; Prostate Specific Antigen 0.5 ng/mL (0.0-4.0)
[2024-05-10] MEDS: DEXTROSE (50%) 50ML SYRG IV ONE (08:45)
[2024-05-10] MEDS ORDERED: ALBUTEROL SULF 2.5 MG/0.5ML(0.5%) NEB SOLN NEB ONE (08:45)
[2024-05-10] MEDS: InsuLIN REG 1unit/0.01ml Soln (100units/ml) IV ONE (08:45)
[2024-05-10] MEDS: ALBUTEROL SULF 2.5 MG/0.5ML(0.5%) NEB SOLN NEB ONE (08:46)
[2024-05-10 11:04] LABS: Albumin 3.9 g/dL (3.2-4.8); Alkaline Phosphatase 101 U/L (46-116); Anion Gap 8 (5-15); Aspartate Aminotransferase 18 U/L (13-40); BUN/Creatinine Ratio 23.4 (10.0-20.0); Bilirubin, Total 0.8 mg/dL (0.2-1.0); Blood Urea Nitrogen 29 mg/dL (9-23); Calcium 11.3 mg/dL (8.7-10.4); Carbon Dioxide 21 mmol/L (20-31); Chloride 107 mmol/L (98-107); Glucose 93 mg/dL (74-106); Potassium 5.1 mmol/L (3.5-5.1); Sodium 136 mmol/L (136-145); Total Protein 7.1 g/dL (5.7-8.2)
[2024-05-10 11:08] LABS: Alanine Aminotransferase < 9 U/L (7-40)
[2024-05-10] MEDS ORDERED: AZITTAB PO (12:33)
[2024-05-15 00:06] LABS: Vitamin D 25-Hydroxy 24 ng/mL (.); Vitamin D-2 25-Hydroxy <1.0 ng/mL (.); Vitamin D-3 25-Hydroxy 24 ng/mL (.)
== END 2024-05-10 16:45 | disposition home or self-care (01) | DRG 189 ==
LOC: ER 15:55 → EDUNIT# 15:55 → EDBD 15:55 → TELE 21:30 → TELE-WESTW 22:57
PROVIDERS: ADMIT Internal Medicine; ATTEND Internal Medicine
PROC: 5A0935A Assistance with Respiratory Ventilation, Less than 24 Consecutive Hours, High Flow/Velocity Cannula (ICD-10-PCS; principal; 2024-05-07)
DX: J96.21 Acute and chronic respiratory failure with hypoxia (principal); R65.11 Systemic inflammatory response syndrome (SIRS) of non-infectious origin with acute organ dysfunction; N17.9 Acute kidney failure, unspecified; J44.1 Chronic obstructive pulmonary disease with (acute) exacerbation; E87.1 Hypo-osmolality and hyponatremia; J43.9 Emphysema, unspecified; I12.9 Hypertensive chronic kidney disease with stage 1 through stage 4 chronic kidney disease, or unspecified chronic kidney disease; F32.A Depression, unspecified; N18.31 Chronic kidney disease, stage 3a; E83.52 Hypercalcemia; E87.5 Hyperkalemia; E83.39 Other disorders of phosphorus metabolism; J98.4 Other disorders of lung
CPT/HCPCS: 36415; 36600; 71045; 71250; 80048; 80053; 81001; 82306; 82378; 82607; 82746; 82805; 82962; 83036; 83605; 83880; 83970; 84100; 84132; 84154; 84484; 85025; 85379; 86301; 94640; 97110; 97116; 97163; 99291; G0378; J1815